=== PATIENT | male | born 1990 | race Caucasian/White ===

== ENCOUNTER 2016-06-29 14:22 | Inpatient (IN) | payer OTHER ==
--- NOTE | ~2016-06-29 | PN ---
Unit #: [id number] #: [id number] Patient: MAYA NAVA [id number] [facility] [address] [place] [address] [id number] MR#: [id number] NAME: MAYA NAVA ROOM: P186 Age: 26 Sex: M Admission Date: 06/29/2016 : 1990 Attending Physician: Nannette Weaver M.D. Admitting Physician: Nannette Weaver M.D. Primary Care Physician: Primary Care Physician Alma MEDEIROS PROGRESS NOTES DATE 06/30/2016 DISCUSSION Mr. Nava is a 26-year-old white male who was seen today and chart was reviewed and case was discussed with the staff. He has been anxious, withdrawn and seclusive to himself and describes himself to be in distress and discomfort as he is detoxing. Meanwhile, he has been cooperative with treatment recommendations and has not shown any agitation or aggression. MENTAL STATUS EXAMINATION Young white male who was casually dressed with fair personal hygiene and appears to be in no acute distress or discomfort. He was awake and alert on interaction with intact orientation. His mood was anxious with congruent affect. His speech is slow and goal-directed. He denies any suicidal or homicidal ideation. His insight and judgement remains slightly impaired. TREATMENT PLAN 1. Will continue him on his current medications and treatment protocol. Will monitor his response to the medications and make further adjustments as needed. 2. Will continue to follow up. Dictated by... Igor Chacon/sabino TD: 06/30/2016 19:40 JOB #: [id number] Unit #: [id number] #: [id number] Patient: MAYA NAVA [facility] PROGRESS NOTES Page 1 of 1 X Nannette Weaver MD PROGRESS NOTE
--- NOTE | ~2016-06-29 | DS ---
Unit #: [id number] #: [id number] [facility]: [facility] [id number] [facility] [address] [place] [address] [id number] MR#: [id number] NAME: MAYA NAVA ROOM: P121 Age: 26 Sex: M Admission Date: 06/29/2016 : 1990 Discharge Date: 07/06/2016 Attending Physician: Nannette Weaver M.D. Primary Care Physician: Primary Care Physician No DISCHARGE SUMMARY IDENTIFYING DATA Mr. Nava is a 26-year-old single white male, who is a resident of [place], [place] and was known to us from previous encounter and was self-referred to the hospital. DISCHARGE DIAGNOSES Psychiatric: Major depressive disorder, recurrent, moderate, without psychotic features; opioid dependence, moderate, in acute withdrawals; methamphetamine abuse, moderate; cannabis abuse, moderate. Medical: None. Stressors: Moderate psychosocial stressors. HISTORY OF PRESENT ILLNESS Please see initial psychiatric evaluation for details. PAST PSYCHIATRIC HISTORY Please see initial psychiatric evaluation for details. PAST MEDICAL HISTORY Please see initial psychiatric evaluation for details. HOSPITAL COURSE The patient was admitted to the adult psychiatric unit at [facility] and was oriented to the hospital environment. Routine p.r.n. medications were initiated, and he was started back on his home medication, and Seroquel and Celexa were initiated. The patient was exhibiting bizarre behavior as part of his depression, his substance abuse with acute psychosis and confusion and was making his roommates uncomfortable and had to be moved to two different rooms and then he had to be transferred to a different floor and was kept in a private camera monitored room and was exhibiting some disorganized thoughts, speech, and behavior, though was able to respond to the medications and treatment intervention with resolution of his mood and psychosis and was denying being suicidal or being a danger to self or anyone else, and was wanting to go home and was willing to continue treatment on an outpatient basis, and as such, it was decided that he will be discharged home and will continue treatment on an outpatient basis. DISCHARGE MEDICATIONS Celexa 20 mg a day for depression, Seroquel 100 mg at bedtime for psychosis. DISCHARGE CONDITION Stable. Unit #: [id number] #: [id number] Patient: MAYA NAVA. Dictated by... Igor Chacon/jermaine TD: 07/06/2016 06:53 JOB #: [id number] DISCHARGE SUMMARY Page 1 of 1 X Nannette Weaver MD X DISCHARGE SUMMARY
--- NOTE | ~2016-06-29 | HP ---
Unit #: [id number] #: [id number] Patient: EFRAIN PATTON [id number] [place] [address] [id number] MR#: [id number] NAME: EFRAIN PATTON ROOM: P186 Age: 26 Sex: M Admission Date: 06/29/2016 : 1990 Attending Physician: Nannette Weaver M.D. Admitting Physician: Nannette Weaver M.D. Primary Care Physician: Primary Care Physician No HISTORY AND PHYSICAL HISTORY OF PRESENT ILLNESS Efrain is a 26 year old, admitted to [facility] because of his continued drug use. PAST MEDICAL HISTORY Long history of illicit substance abuse to include IV meth. PAST SURGICAL HISTORY Nothing reported. ALLERGIES No known drug allergies. SOCIAL HISTORY He smokes one pack per day, denies alcohol, admits to long history of illicit substance abuse to include IV meth. FAMILY HISTORY Medically noncontributory. REVIEW OF SYSTEMS CONSTITUTIONAL: No fever or chills. HEENT: Denies any sore throat, ear pain or runny nose. CARDIOVASCULAR: Denies chest pain, irregular heart rhythm or palpitations. CHEST: Denies shortness of breath or cough. No hemoptysis. GASTROINTESTINAL: Denies nausea, vomiting, diarrhea or chronic constipation. ENDOCRINE: Denies history of increased thirst or urination. No recent significant weight loss or gain. GENITOURINARY: Denies dysuria, frequency, or hematuria. SKIN: Denies any rashes. HEMATOLOGIC: Denies history of increased bleeding or bruising. MUSCULOSKELETAL: Denies any hot, swollen joints. No generalized muscle pain. NEUROLOGIC: Denies problems with vision or speech. No frequent, severe headaches. No numbness, tingling or weakness in any extremities. Denies loss of bladder or bowel control. CURRENT MEDICATIONS Detox protocol. PHYSICAL EXAMINATION GENERAL: Alert, well-nourished, no apparent distress. Unit #: [id number] #: [id number] Patient: EFRAIN PATTON VITAL SIGNS: Blood pressure 118/72, heart rate 76, respirations 16, and temperature 98.6. WEIGHT: 170 pounds. HEIGHT: 5 feet 7 inches. SKIN: Warm and dry without rash or lesion. HEENT: Normocephalic. TMs not viewed. Oral and nasal passages clear. Conjunctivae clear. PERRLA. EOMs intact. NECK: Supple without lymphadenopathy or thyromegaly. HEART: Regular rate and rhythm without murmur. LUNGS: Clear. ABDOMEN: Soft, nontender. : Not done. EXTREMITIES: No evidence of cyanosis, clubbing or edema. Moves all without focal deficit. NEUROLOGICAL: Grossly within normal limits. Cranial Nerves: II: Visual stapleton are intact. III, IV AND : Extraocular movements are intact. Pupils are equal, round and reactive to light. V: Facial sensation is grossly normal. VII: Facial movements and expression are normal. VIII: Auditory acuity grossly intact. IX, X: Uvula is midline. Phonation is normal. XI: Patient shrugs shoulders and turns head normally. XII: Tongue protrudes in the midline. Sensory and Motor Function: Sensory and motor sensation is grossly normal. Motor: moves all extremities well. Coordination: Gait is normal. Deep Tendon Reflexes: Intact. IMPRESSION Psychiatric admission. RECOMMENDATIONS Psychiatric, per psychiatrist. MEDICAL I see no contraindications to participating in facility's activities. MEDICAL PROGNOSIS Good. MEDICAL CONDITION Stable. Dictated by... Anisa Tripp P.A.-C. for Igor Yeung/dianne TD: 06/30/2016 05:01 JOB #: [id number] Unit #: [id number] #: [id number] Patient: EFRAIN PATTON HISTORY AND PHYSICAL Page 1 of 1 X Anisa Tripp HISTORY AND PHYSICAL
--- NOTE | ~2016-06-29 | PN ---
Unit #: [id number] #: [id number] Patient: MAYA NAVA [id number] [facility] [address] [place] [address] [id number] MR#: [id number] NAME: MAYA NAVA ROOM: P121 Age: 26 Sex: M Admission Date: 06/29/2016 : 1990 Attending Physician: Nannette Weaver M.D. Admitting Physician: Nannette Weaver M.D. Primary Care Physician: Primary Care Physician Alma MEDEIROS PROGRESS NOTES DATE OF SERVICE 07/04/2016 DISCUSSION Mr. Nava is a 26-year-old white male who was seen today. Chart was reviewed and case was discussed with the staff. He has been anxious, withdrawn, rather disorganized and has been seclusive to himself. Meanwhile, she has been taking the medications and tolerating them fairly well with no reported side effects. MENTAL STATUS EXAMINATION Young white male who is casually dressed with fair personal hygiene, appears to be in no acute distress or discomfort. The patient was awake and alert on interaction with intact orientation. His mood is anxious with a congruent affect. Speech is slow and goal-directed. He denies any suicidal or homicidal ideations. His insight and judgment remain slightly impaired. TREATMENT PLAN 1. We will continue him on his current medications and treatment protocol. We will monitor his response to the medications and make further adjustments as needed. 2. We will continue to follow up. Dictated by... Nannette Weaver M.D. IAA/bzg TD: 07/05/2016 11:28 JOB #: [id number] Unit #: [id number] #: [id number] Patient: MAYA NAVA PROGRESS NOTES Page 1 of 1 X Nannette Weaver MD X PROGRESS NOTE
--- NOTE | ~2016-06-29 | PN ---
Unit #: [id number] #: [id number] Patient: MAYA NAVA [id number] [facility] [address] [place] [address] [id number] I MR#: [id number] NAME: MAYA NAVA ROOM: [facility] Age: 26 Sex: M Admission Date: 06/29/2016 : 1990 Attending Physician: Nannette Weaver M.D. Admitting Physician: Nannette Weaver M.D. Primary Care Physician: Primary Care Physician Alma FALCON NOTES DATE 07/02/2016 DISCUSSION Mr. Nava is a 26-year-old, white male with mood disorder and psychosis who was seen today and chart was reviewed and case was discussed with the staff who reports the patient has been exhibiting bizarre behavior and acute confusional state and has been out of touch with reality and has been making other patients uncomfortable. He has been his roommate so uncomfortable that he has been switched to a different room twice. Meanwhile, he has been taking the medication and tolerating them fairly well with no reported side effects. MENTAL STATUS EXAM Young white male who was casually dressed with fair personal hygiene, appears to be in no acute distress or discomfort. He was awake and alert with impaired attention and concentration. His mood was anxious with a congruent affect. His speech was slow and restricted in content. His thought process was disorganized with some looseness of associations. His insight and judgement remain significantly impaired. TREATMENT PLAN 1. We will continue him on his current medications and treatment protocol. We will monitor his response and make further adjustments as needed. 2. We will continue to follow up. Dictated by... Igor Chacon/lawrence TD: 07/03/2016 21:32 JOB #: [id number] Unit #: [id number] #: [id number] Patient: MAYA NAVA [facility] PROGRESS NOTES Page 1 of 1 X Nannette Weaver MD PROGRESS NOTE
--- NOTE | ~2016-06-29 | PA ---
Unit #: [id number] #: [id number] Patient: MAYA NAVA [id number] [facility] [address] [place] [address] [id number] MR#: [id number] NAME: MAYA NAVA ROOM: P186 Age: 26 Sex: M Admission Date: 06/29/2016 : 1990 Date of Assessment: Attending Physician: Nannette Weaver M.D. Admitting Physician: Nannette Weaver M.D. PSYCHIATRIC ASSESSMENT DATE OF SERVICE 06/29/2016. IDENTIFYING DATA Mr. Nava is a 26-year-old single white male, who is a resident of [place] and is known to us from previous encounter, and was self-referred to the hospital on a voluntary basis. CHIEF COMPLAINT "I have been trying to kill myself." HISTORY OF PRESENT ILLNESS Mr. Nava is a 26-year-old white male with history of substance abuse and mood disorder, who is known to us from previous encounter, and was self-referred to the hospital. Upon presentation, reports increasing depression, thoughts of wanting to kill himself and stated that about a week ago, "I tried to cut my wrist with a knife. Yesterday, I tried to hang myself with a fishing line. I just thought of my daughter and I [facility], however, could get help and I don't want to do it again. If I cannot get help, I am in thoughts overdose on pills to kill myself." The patient stated "right now, I don't think I could keep myself safe at another facility because this place help me last time. I have been using past 2 weeks. My last use was yesterday, also has been using ice daily IV or snorted and also use pain pills to every other day, and my last use was 6 days ago." However, he did report increasing depression, anxiety, irritability, restlessness, feelings of hopelessness and helplessness, and suicidal ideations with intent and plan and as such, recommendation for inpatient level of care for safety and stabilization was made. SUBSTANCE ABUSE HISTORY The patient has extensive history of substance abuse and dependence including experimentation with alcohol, cannabis, cocaine, acid, opioids, amphetamines, and reports that he has been using drugs occasionally including methamphetamine, heroin, and cannabis. PAST PSYCHIATRIC HISTORY The patient has a history of inpatient psychiatric hospitalization at [facility] twice and recently was hospitalized under my care in 04/2016; however, review of the medical records indicate that currently he is not active in treatment program, is not seeing a psychiatrist, not taking any psychotropic medications. Unit #: [id number] #: [id number] Patient: MAYA NAVA PAST MEDICAL HISTORY The patient's medical history is insignificant. ALLERGIES No known medication allergies. CURRENT MEDICATIONS None. PERSONAL AND SOCIAL HISTORY A 26-year-old white male, who reports that he is single, unemployed, and essentially homeless and has poor social support system. MENTAL STATUS EXAMINATION Young white male, who was casually dressed with fair personal hygiene, appears to be in no acute distress or discomfort. He was awake and alert on interaction with intact orientation to time, place, and person. His mood was anxious and depressed with a congruent affect. His speech was slow and restricted in content. His thought processes were disorganized with some looseness of associations and suicidal ideations. His insight and judgment remain significantly impaired. DIAGNOSTIC IMPRESSION Psychiatric: Major depressive disorder, recurrent, moderate without psychotic features; opioid dependence, moderate and acute withdrawal; methamphetamine abuse, moderate; cannabis abuse, moderate. Medical: None. Stressors: Moderate psychosocial stressors. TREATMENT PLAN The patient has presented with history of substance abuse and mood disorder, and has been decompensating and will need inpatient hospitalization for detoxification, safety, and stabilization. We will start him back on his home medications. We will adjust the medications ESTIMATED LENGTH OF STAY 5 to 7 days. ABILITY TO HELP SELF Limited. WILLINGNESS TO HELP SELF The patient appears to be willing to help self. STRENGTHS 1. Communicative. 2. Cooperative. PROBLEMS 1. Chronic dysphoric symptoms. 2. Poor social support system. DISCHARGE CRITERIA This will be contingent upon the patient's ability to go through detox without having any significant withdrawal symptoms as well as ability to stay safe to himself, particularly after discharge from the hospital. Unit #: [id number] #: [id number] Patient: MAYA NAVA Dictated by... Nannette Weaver M.D. AISHWARYA/jermaine TD: 06/30/2016 06:36 JOB #: [id number] PSYCHIATRIC ASSESSMENT Page 1 of 1 X Nannette Weaver MD PSYCHIATRIC ASSESSMENT
--- NOTE | ~2016-06-29 | PN ---
Unit #: [id number] #: [id number] Patient: MAYA NAVA [id number] [facility] [address] [place] [address] [id number] I MR#: [id number] NAME: MAYA NAVA ROOM: P106 Age: 26 Sex: M Admission Date: 06/29/2016 : 1990 Attending Physician: Nannette Weaver M.D. Admitting Physician: Nannette Weaver M.D. Primary Care Physician: Primary Care Physician Alma FALCON NOTES DATE 07/01/2016 DISCUSSION Mr. Nava is a 26-year-old, white male with substance abuse and mood disorder who was seen today and chart was reviewed and case was discussed with the staff. He has been anxious, restless, withdrawn and seclusive to himself distress or discomfort reporting not feeling good as he goes through detox. Meanwhile, he has been taking medications and tolerating them fairly. MENTAL STATUS EXAM Young white male who was casually dressed with marginal personal hygiene, appears to be in distress or discomfort. He was awake and alert with impaired attention and concentration. His mood was anxious with congruent affect. His speech was slow and restricted in content. His thought processes were disorganized with some looseness of associations. His insight and judgement remains significantly impaired. TREATMENT PLAN 1. We will continue him on his current medications and treatment protocol. We will monitor his response to the medications and make further adjustments as needed. 2. We will continue to follow up. Dictated by... Igor Chacon/lawrence TD: 07/03/2016 00:18 JOB #: [id number] Unit #: [id number] #: [id number] Patient: MAYA ANVA [facility] PROGRESS NOTES Page 1 of 1 X Nannette Weaver MD PROGRESS NOTE
--- NOTE | ~2016-06-29 | PN ---
Unit #: [id number] #: [id number] Patient: MAYA NAVA [id number] [facility] [address] [place] [address] [id number] I MR#: [id number] NAME: MAYA NAVA ROOM: P121 Age: 26 Sex: M Admission Date: 06/29/2016 : 1990 Attending Physician: Nannette Weaver M.D. Admitting Physician: Nannette Weaver M.D. Primary Care Physician: Primary Care Physician Alma FALCON NOTES DATE OF SERVICE 07/05/2016 DISCUSSION Mr. Nava is a 26-year-old white male who was seen today. Chart was reviewed and case was discussed with the staff. He has been anxious, restless, withdrawn, and rather seclusive to himself. Meanwhile, he has been cooperative with treatment recommendations and has been taking the medications and tolerating them fairly well with no reported side effects. MENTAL STATUS EXAMINATION Young white male who is casually dressed with fair personal hygiene, appears to be in no acute distress or discomfort. He was awake and alert on interaction with intact orientation. His mood is anxious with congruent affect. His speech is slow and restricted in content. He denies any current suicidal or homicidal ideations and also denies any auditory or visual hallucinations. His insight and judgment remain slightly impaired. TREATMENT PLAN 1. We will continue him on his current medications and treatment protocol. We will monitor his response to the medications and make further adjustments as needed. 2. We will continue to follow up. Dictated by... Igor Chacon/shayan TD: 07/07/2016 07:41 JOB #: [id number] Unit #: [id number] #: [id number] Patient: MAYA NAVA [facility] PROGRESS NOTES Page 1 of 1 X Nannette Weaver MD PROGRESS NOTE
--- NOTE | ~2016-06-29 | PN ---
Unit #: [id number] #: [id number] Patient: MAYA NAVA [id number] [facility] [address] [place] [address] [id number] MR#: [id number] NAME: MAYA NAVA ROOM: P121 Age: 26 Sex: M Admission Date: 06/29/2016 : 1990 Attending Physician: Nannette Weaver M.D. Admitting Physician: Nannette Weaver M.D. Primary Care Physician: Primary Care Physician Alma MEDEIROS PROGRESS NOTES DATE 07/03/2016 DISCUSSION Mr. Nava is a 26-year-old white male who was seen today and chart was reviewed and case was discussed with the staff. He has been anxious, withdrawn though has not shown any agitation, irritability and has been cooperative with treatment recommendations though has been exhibiting some confusion and restlessness and depressed symptoms. MENTAL STATUS EXAMINATION Young white male who was casually dressed with fair personal hygiene and appears to be in no acute distress or discomfort. He was awake and alert on interaction with intact orientation. His mood was anxious with congruent affect. His speech is slow and goal-directed. He denies any suicidal or homicidal ideation and also denies any auditory or visual hallucinations. His insight and judgement remains slightly impaired. TREATMENT PLAN 1. Will continue on his current medications and treatment protocol. Will monitor his response to the medications and make further adjustments as needed. 2. Will continue to follow up. Dictated by... Igor Chacon/sabino TD: 07/04/2016 17:45 JOB #: [id number] Unit #: [id number] #: [id number] Patient: MAYA NAVA [facility] PROGRESS NOTES Page 1 of 1 X Nannette Weaver MD PROGRESS NOTE
[~2016-06-29 14:22] MED LIST: NO MEDICATIONS
[2016-06-30 09:45] LABS: BASOPHIL# 0.1 X10e3 (0-0.3); EOSINOPHIL# 0.2 X10e3 (0-0.7); EOSINOPHIL% 4.2 % (0.0-7.0); HEMATOCRIT 43.7 % (38.0-50.0); HEMOGLOBIN 14.5 gm/dL (13.0-16.0); LYMPHOCYTE# 2.1 X10e3 (1.0-3.5); LYMPHOCYTE% 37.2 % (17.0-45.0); MEAN CELL VOLUME 90.8 FL (83-96); MEAN CORPUSCULAR HEMOGLOBIN 30.1 PG (28-34); MEAN CORPUSCULAR HGB CONC 33.1 g/dL (30-36); MONOCYTE# 0.7 X10e3 (0-1.0); MONOCYTE% 12.6 % (3.0-12.0); NEUTROPHIL# 2.5 X10e3 (1.5-7.1); PLATELET COUNT 178 X10e3 (140-420); RED BLOOD COUNT 4.82 X10e (3.90-5.60); RED CELL DISTRIBUTION WIDTH 14.8 % (11.0-15.5); WHITE BLOOD COUNT 5.6 X10e3 (4.0-10.5)
[2016-06-30 09:45] LABS: URINE APPEARANCE CLEAR; URINE BLOOD NEG (NEG); URINE COLOR DK YELLOW; URINE GLUCOSE NEG (NEG); URINE KETONE TRACE (NEG); URINE LEUKOCYTE ESTERASE NEG (NEG); URINE NITRATE NEG (NEG); URINE PROTEIN NEG (NEG); URINE SPECIFIC GRAVITY 1.026 (1.003-1.035)
[2016-06-30 09:52] LABS: DIFF IND NO
[2016-06-30 10:07] LABS: THYROID STIMULATING HORMONE 0.37 uIU/ml (0.34-5.60)
[2016-06-30 10:14] LABS: URINE BILIRUBIN NEG (NEG)
[2016-06-30 10:18] LABS: FREE THYROXIN (T4) 0.73 ng/dL (0.58-1.64)
[2016-06-30 10:32] LABS: ALBUMIN SERUM 3.4 g/dL (3.5-5.0); BILIRUBIN,TOTAL 0.8 mg/dL (0.2-2.0); BUN/CREATININE RATIO 18.75; CALCIUM SERUM 8.5 mg/dL (8.4-10.2); CREATININE SERUM 0.8 mg/dL (0.6-1.4); GLOM FILT RATE Estimated 122.5 mL/min (>60); POTASSIUM 4.3 mmol/L (3.5-5.1); PROTEIN TOTAL SERUM 5.3 g/dL (6.0-8.3)
[2016-06-30 10:32] LABS: AMPHETAMINE NEG (NEG); BARBITURATES NEG (NEG); BENZODIAZEPINES NEG (NEG); COCAINE NEG (NEG); MARIJUANA POS (NEG); OPIATES NEG (NEG); TRICYCLIC ANTIDEPRESSANTS NEG (NEG); U METHADONE NEG (NEG)
== END 2016-07-06 10:45 | DRG 885 ==
LOC: P1E 14:22 → P1S 07-02 11:57
PROVIDERS: Psychiatry & Neurology Psychiatry
PROC: HZ2ZZZZ Detoxification Services for Substance Abuse Treatment (ICD-10-PCS; principal; 2016-06-29)
DX: F33.1 Major depressive disorder, recurrent, moderate (principal); R45.851 Suicidal ideations; F11.23 Opioid dependence with withdrawal; Z59.0 Homelessness; F15.10 Other stimulant abuse, uncomplicated; F14.10 Cocaine abuse, uncomplicated; F17.210 Nicotine dependence, cigarettes, uncomplicated
CPT/HCPCS: 80053; 80307; 81003; 84439; 84443; 85025; 86592

== ENCOUNTER 2016-09-05 14:00 | Inpatient (IN) | payer OTHER ==
--- NOTE | ~2016-09-05 | PN ---
Unit #: [id number] #: [id number] Patient: MAYA NAVA [id number] [facility] [address] [place] [address] [id number] MR#: [id number] NAME: MAYA NAVA ROOM: P180 Age: 26 Sex: M Admission Date: 09/05/2016 : 1990 Attending Physician: Nannette Weaver M.D. Admitting Physician: Nannette Weaver M.D. Primary Care Physician: Primary Care Physician Alma MEDEIROS PROGRESS NOTES DATE OF SERVICE: 09/10/2016 SUBJECTIVE Mr. Nava is a 26-year-old white male, who was seen today and chart was reviewed and case was discussed with the staff. He appears to be doing better, has been calm and cooperative with treatment recommendation and has been taking medications and tolerating them fairly well with no reported side effects. MENTAL STATUS EXAMINATION Young white male who was causally dressed with fair personal hygiene, appears to be in no acute distress or discomfort. He was awake and alert on interaction with intact orientation. His mood was anxious with a congruent affect. He denies any suicidal or homicidal ideations, and also denies any auditory or visual hallucinations. His insight and judgment remain slightly impaired. TREATMENT PLAN 1. We will continue him on his current medications and treatment protocol. We will monitor his response and make further adjustments as needed. 2. We will continue to follow up. Dictated by... Igor Chacon/jermaine TD: 09/10/2016 14:19 JOB #: [id number] [facility] PROGRESS NOTES Page 1 of 1 X Nannette Weaver MD PROGRESS NOTE
--- NOTE | ~2016-09-05 | DS ---
Unit #: [id number] #: [id number] [facility]: [facility] PATTON [id number] [facility] [address] [place] [address] [id number] I MR#: [id number] NAME: MAYA PATTON ROOM: P180 Age: 26 Sex: M Admission Date: 09/05/2016 : 1990 Discharge Date: 09/11/2016 Attending Physician: Nannette Weaver M.D. DISCHARGE SUMMARY IDENTIFYING DATA Mr. Angeles is a 26-year-old white male with history of substance abuse and dependence, who was self-referred to the hospital. DISCHARGE DIAGNOSES Psychiatric: Opioid dependence, moderate and acute withdrawals; methamphetamine dependence, moderate; opioid-induced mood disorder. Medical: None. Stressors: Moderate psychosocial stressors. HISTORY OF PRESENT ILLNESS Please see initial psychiatric evaluation for details. PAST PSYCHIATRIC HISTORY Please see initial psychiatric evaluation for details. PAST MEDICAL HISTORY Please see initial psychiatric evaluation for details. HOSPITAL COURSE The patient was admitted to the adult chemical dependency unit at [facility] and was oriented to the hospital environment. Routine p.r.n. medications were initiated, and he was started on the detox protocol and was closely monitored. He was also given Celexa to help with depressive symptoms and was seen to be doing much better and was taking the medications regularly and was tolerating them fairly well and was able to show a decent and therapeutic response and as such, it was decided that he will be discharged home and will continue treatment on an outpatient basis. DISCHARGE CONDITION Stable. PROGNOSIS Fair. Dictated by... Igor Chacon/jermaine TD: 10/17/2016 23:21 JOB #: [id number] Unit #: [id number] #: [id number] Patient: MAYA PATTON DISCHARGE SUMMARY Page 1 of 1 X Nannette Weaver MD X DISCHARGE SUMMARY
--- NOTE | ~2016-09-05 | PN ---
Unit #: [id number] #: [id number] Patient: MAYA NAVA [id number] [facility] [address] [place] [address] [id number] I MR#: [id number] NAME: MAYA NAVA ROOM: P180 Age: 26 Sex: M Admission Date: 09/05/2016 : 1990 Attending Physician: Nannette Weaver M.D. Admitting Physician: Nannette Waever M.D. Primary Care Physician: Primary Care Physician Alma FALCON NOTES DATE 09/07/2016 DISCUSSION Mr. Nava is a 26-year-old, white male who was seen today and chart was reviewed and case was discussed with the staff. He has been anxious, withdrawn and rather seclusive to himself. Meanwhile, he has been cooperative with the treatment recommendations. He has been taking the medication and tolerating them fairly well with no reported side effects. MENTAL STATUS EXAM Young white male who was casually dressed with fair personal hygiene, appears to be in no acute distress or . Dictated by... Igor Chacon/lawrence TD: 09/08/2016 05:04 JOB #: [id number] WALDEMAR FALCON NOTES Page 1 of 1 X Nannette Weaver MD PROGRESS NOTE
--- NOTE | ~2016-09-05 | PN ---
Unit #: [id number] #: [id number] Patient: MAYA NAVA [id number] [facility] [address] [place] [address] [id number] MR#: [id number] NAME: MAYA NAVA ROOM: P180 Age: 26 Sex: M Admission Date: 09/05/2016 : 1990 Attending Physician: Nannette Weaver M.D. Admitting Physician: Nannette Weaver M.D. Primary Care Physician: Primary Care Physician Alma MEDEIROS PROGRESS NOTES DATE OF SERVICE: 09/11/2016 SUBJECTIVE Mr. Nava is a 26-year-old white male who was seen today and chart was reviewed and case was discussed with the staff. He appears to be doing fairly well, though has been still anxious and pacing the hallways, but states that he is ready to go to his rehab level of care. Meanwhile, he has been taking the medications and tolerating them fairly well with no reported side effects. MENTAL STATUS EXAMINATION Young white male who was casually dressed with fair personal hygiene, appears to be in no acute distress or discomfort. He was awake and alert with intact orientation. His mood was anxious with a congruent affect. He denies any suicidal or homicidal ideations, and also denies any auditory or visual hallucinations. His insight and judgment remain slightly impaired. TREATMENT PLAN We will continue him on his current medications and treatment protocol. We will monitor his response. Dictated by... Igor Chacon/cameronl TD: 09/12/2016 01:33 JOB #: [id number] [facility] PROGRESS NOTES Page 1 of 1 X Nannette Weaver MD PROGRESS NOTE
--- NOTE | ~2016-09-05 | PA ---
Unit #: [id number] #: [id number] [facility]AVA [id number] [facility] [address] [place] [address] [id number] I MR#: [id number] NAME: MAYA NAVA ROOM: P180 Age: 26 Sex: M Admission Date: 09/05/2016 : 1990 Date of Assessment: Attending Physician: Nannette Weaver M.D. Admitting Physician: Nannette Weaver M.D. Primary Care Physician: Primary Care Physician No PSYCHIATRIC ASSESSMENT DATE OF SERVICE 09/05/2016. IDENTIFYING DATA Mr. Nava is a 26-year-old single white male, who is a resident of [place], [place], and was self-referred to the hospital on a voluntary basis and he is known to us from previous encounter. CHIEF COMPLAINT "I'm having suicidal thoughts because I know I don't have a job or income." HISTORY OF PRESENT ILLNESS A 26-year-old white male, who self-presented stating that he has been having suicidal thoughts and financial stressors and not having any job and "I'm having to steal to stay alive." The patient reports that his plan is to kill himself with a heroin overdose, "because I don't use that all the time and it would not take as much." The patient reports that his family will not talk to him and they are 60 miles away in [place], [place], and the patient reports using ice 1 g IV about once a week and cannabis once a week and last use of cannabis was a couple of days ago and ice was last week. He does report increasing depression, anxiety, irritability, feelings of hopelessness and helplessness, and suicidal ideations and was seen to be danger to self and as such, recommendation for inpatient level of care for safety and stabilization was made and the patient was transferred to us. SUBSTANCE ABUSE HISTORY The patient reports occasional experimentation with cannabis, methamphetamine, and heroin. PAST PSYCHIATRIC HISTORY The patient [facility] and has been diagnosed and treated for mood disorder, but currently he has not been active in any treatment program, is not seeing a psychiatrist, and is not taking any psychotropic medications. PAST MEDICAL HISTORY No acute or chronic medical illness. ALLERGIES No known medication allergies. CURRENT MEDICATIONS Unit #: [id number] #: [id number] Patient: MAYA NAVA None. PERSONAL AND SOCIAL HISTORY A 26-year-old white male, who reports that he is single, unemployed, and homeless and has poor social support system. MENTAL STATUS EXAMINATION Young white male who was casually dressed with fair personal hygiene, appears to be in no acute distress or discomfort. He was awake and alert on interaction with intact orientation to time, place, and person. His mood was anxious and depressed with a congruent affect. His speech was slow and restricted in content. He reports having suicidal ideations, but denies any homicidal ideations, and also denies any auditory or visual hallucinations. His insight and judgment remain significantly impaired. DIAGNOSTIC IMPRESSION Psychiatric: Major depressive disorder, recurrent, moderate, without psychotic features; opioid abuse, moderate; cannabis abuse, moderate; methamphetamine abuse, moderate. Medical: None. Stressors: Moderate psychosocial stressors. TREATMENT PLAN 1. The patient has presented with history of substance abuse and mood disorder, and has been decompensating and will need inpatient hospitalization for detoxification, safety, and stabilization. We will start him back on his home medications. We will monitor response and make further adjustments as needed. 2. Supportive therapy was provided to the patient. 3. Safe, structured, and nourishing environment will be provided. ESTIMATED LENGTH OF STAY 4 to 5 days. ABILITY TO HELP SELF Limited. WILLINGNESS TO HELP SELF The patient appears to be willing to help self. STRENGTHS 1. Communicative. 2. Cooperative. PROBLEMS 1. Chronic dysphoric symptoms. 2. Chronic chemical dependency. 3. Poor social support system. DISCHARGE CRITERIA This will be contingent upon the patient's ability to show resolution of his depression and anxiety and his ability to stay safe to himself, particularly after discharge from the hospital. Dictated by... Nannette Weaver M.D. Unit #: [id number] #: [id number] Patient: MAYA NAVA IAA/modl TD: 09/06/2016 06:34 JOB #: [id number] PSYCHIATRIC ASSESSMENT Page 1 of 1 X Nannette Weaver MD X PSYCHIATRIC ASSESSMENT
--- NOTE | ~2016-09-05 | PN ---
Unit #: [id number] #: [id number] Patient: MAYA NAVA [id number] [facility] [address] [place] [address] [id number] I MR#: [id number] NAME: MAYA NAVA ROOM: P180 Age: 26 Sex: M Admission Date: 09/05/2016 : 1990 Attending Physician: Nannette Weaver M.D. Admitting Physician: Nannette Weaver M.D. Primary Care Physician: Primary Care Physician Alma MEDEIROS PROGRESS NOTES DATE September 09, 2016 DISCUSSION Mr. Nava is a 26-year-old white male, who was seen today and chart was reviewed and the case was discussed with the staff. He has been anxious, withdrawn, and rather seclusive to himself. Meanwhile, he has been cooperative with his treatment recommendations and he has been taking the medications and tolerating them fairly well with no reported side effects. MENTAL STATUS EXAMINATION Young white male, who was casually dressed with fair personal hygiene and appears to be in no acute distress or discomfort. He was awake and alert on interaction with intact orientation. His mood is anxious with a congruent affect. He denies any suicidal or homicidal ideations. His insight and judgment remain slightly impaired. TREATMENT PLAN 1. We will continue him on his current treatment protocol, and will monitor his response, and make further adjustments as needed. 2. We will continue to followup. Dictated by... Igor Chacon/dianne TD: 09/11/2016 06:57 JOB #: [id number] Unit #: [id number] #: [id number] Patient: MAYA NAVA PROGRESS NOTES Page 1 of 1 X Nannette Weaver MD PROGRESS NOTE
--- NOTE | ~2016-09-05 | PN ---
Unit #: [id number] #: [id number] Patient: MAYA NAVA [id number] [facility] [address] [place] [address] [id number] I MR#: [id number] NAME: MAYA NAVA ROOM: P180 Age: 26 Sex: M Admission Date: 09/05/2016 : 1990 Attending Physician: Nannette Weaver M.D. Admitting Physician: Nannette Weaver M.D. Primary Care Physician: Primary Care Physician Alma FALCON NOTES DATE OF SERVICE: 09/07/2016 SUBJECTIVE Mr. Nava is a 26-year-old white male who was seen today and chart was reviewed and case was discussed with the staff. He has been anxious, withdrawn, and rather seclusive to himself. Meanwhile, he has been taking the medications and tolerating them fairly well with no reported side effects. MENTAL STATUS EXAMINATION Young white male who was causally dressed with fair personal hygiene, appears to be in no acute distress or discomfort. He was awake and alert on interaction with intact orientation. His mood was anxious with a congruent affect. He denies any suicidal or homicidal ideations, and also denies any auditory or visual hallucinations. His insight and judgment remain slightly impaired. TREATMENT PLAN 1. We will continue him on his current medications and treatment protocol. We will monitor his response and make further adjustments as needed. 2. We will continue to follow up. Dictated by... Igor Chacon/cameronl TD: 09/07/2016 22:30 JOB #: [id number] Unit #: [id number] #: [id number] Patient: MAYA NAVA WALDEMAR PROGRESS NOTES Page 1 of 1 X Nannette Weaver MD X PROGRESS NOTE
--- NOTE | ~2016-09-05 | PN ---
Unit #: [id number] #: [id number] Patient: MAYA NAVA [id number] [facility] [address] [place] [address] [id number] I MR#: [id number] NAME: MAYA NAVA ROOM: P180 Age: 26 Sex: M Admission Date: 09/05/2016 : 1990 Attending Physician: Nannette Weaver M.D. Admitting Physician: Nannette Weaver M.D. Primary Care Physician: Primary Care Physician Alma MEDEIROS PROGRESS NOTES DATE 09/08/2016 DISCUSSION Mr. Nava is a 26-year-old, white male who was seen today and chart was reviewed and case was discussed with the staff. He has been anxious, withdrawn, pacing the hallway and very guarded and seclusive to himself and not opening up and interacting or carrying on much conversation. Meanwhile, he has been taking the medications and tolerating them fairly well with no reported side effects. MENTAL STATUS EXAM Young white male who was casually dressed with fair personal hygiene, appears to be in no acute distress or discomfort. He was awake and alert on interaction with intact orientation. His mood was anxious with congruent affect. He denies any suicidal or homicidal ideation. His insight and judgement remains significantly impaired. TREATMENT PLAN 1. We will continue him on his current treatment protocol. We will monitor his response and make further adjustments as needed. 2. We will continue to follow up. Dictated by... Igor Chacon/lawrence TD: 09/11/2016 02:00 JOB #: [id number] Unit #: [id number] #: [id number] Patient: MAYA NAVA PEALUIS PROGRESS NOTES Page 1 of 1 X Nannette Weaver MD PROGRESS NOTE
--- NOTE | ~2016-09-05 | PN ---
Unit #: [id number] #: [id number] Patient: MAYA NAVA [id number] [facility] [address] [place] [address] [id number] MR#: [id number] NAME: MAYA NAVA ROOM: P180 Age: 26 Sex: M Admission Date: 09/05/2016 : 1990 Attending Physician: Nannette Weaver M.D. Admitting Physician: Nannette Weaver M.D. Primary Care Physician: Alma Primary Care Physician [facility] PROGRESS NOTES DATE September 06. DISCUSSION Mr. Nava is a 26-year-old, white male with substance abuse and mood disorder who was seen today and chart was reviewed. The case was discussed with the staff. He was seen to be very restless, anxious and reports (1) feelings of hopelessness and suicidal ideation. He has been compliant with the treatment recommendations. MENTAL STATUS EXAMINATION Young, white male who was casually dressed with a fair personal hygiene and appears to be in no acute distress or discomfort. He was awake and alert on interaction with intact orientation. His mood is anxious and depressed with a congruent affect. Reports having suicidal ideation, but denies any homicidal ideation and also denies any auditory or visual hallucinations. His insight and judgement remain slightly impaired. TREATMENT PLAN 1. Will continue his current medications and treatment protocol. Will monitor her response to the medications and make further adjustments as needed. 2. We will continue to follow up. Dictated by... Igor Chacon/mis TD: 09/07/2016 12:33 JOB #: [id number] Unit #: [id number] #: [id number] Patient: MAYA NAVA [facility] PROGRESS NOTES Page 1 of 1 X Nannette Weaver MD PROGRESS NOTE
--- NOTE | ~2016-09-05 | HP ---
Unit #: [id number] #: [id number] Patient: EFRAIN PATTON [id number] [place] [address] [id number] MR#: [id number] NAME: EFRAIN PATTON ROOM: P180 Age: 26 Sex: M Admission Date: 09/05/2016 : 1990 Attending Physician: Nannette Weaver M.D. Admitting Physician: Nannette Weaver M.D. Primary Care Physician: Primary Care Physician No HISTORY AND PHYSICAL HISTORY OF PRESENT ILLNESS Efrain is a 26 year old admitted to [facility] because of his drug use. He shoots heroin and methamphetamine. PAST MEDICAL HISTORY History of illicit substance abuse to include IV drugs. PAST SURGICAL HISTORY Nothing reported. ALLERGIES No known drug allergies. SOCIAL HISTORY He smokes 1 pack per day. Denies alcohol. Admits to a long history of illicit substance abuse to include IV meth and heroin. FAMILY HISTORY Medically noncontributory. REVIEW OF SYSTEMS CONSTITUTIONAL: No fever or chills. HEENT: Denies any sore throat, ear pain or runny nose. CARDIOVASCULAR: Denies chest pain, irregular heart rhythm or palpitations. CHEST: Denies shortness of breath or cough. No hemoptysis. GASTROINTESTINAL: Denies nausea, vomiting, diarrhea or chronic constipation. ENDOCRINE: Denies history of increased thirst or urination. No recent significant weight loss or gain. GENITOURINARY: Denies dysuria, frequency, or hematuria. SKIN: Denies any rashes. HEMATOLOGIC: Denies history of increased bleeding or bruising. MUSCULOSKELETAL: Denies any hot, swollen joints. No generalized muscle pain. NEUROLOGIC: Denies problems with vision or speech. No frequent, severe headaches. No numbness, tingling or weakness in any extremities. Denies loss of bladder or bowel control. CURRENT MEDICATIONS 1. Celexa 20 mg daily. 2. Thorazine 50 mg q. 6 hours p.r.n. 3. Desyrel p.r.n. 4. Milk of Magnesia p.r.n. Unit #: [id number] #: [id number] Patient: EFRAIN PATTON 5. Maalox p.r.n. 6. Tylenol p.r.n. 7. Nicotine patch 14 mg daily. PHYSICAL EXAMINATION GENERAL: Alert, well-nourished, in no apparent distress. VITAL SIGNS: Blood pressure 112/68, heart rate 56, respirations 16, temperature 98.6. WEIGHT: 151. HEIGHT: 5 feet 2 inches. SKIN: Warm and dry without rash or lesion. HEENT: Normocephalic. TMs not viewed. Oral and nasal passages clear. Conjunctivae clear. PERRLA. EOMs intact. NECK: Supple without lymphadenopathy or thyromegaly. HEART: Regular rate and rhythm without murmur. LUNGS: Clear. ABDOMEN: Soft, nontender. : Not done. EXTREMITIES: No evidence of cyanosis, clubbing or edema. Moves all without focal deficit. NEUROLOGICAL: Grossly within normal limits. Cranial Nerves: II: Visual stapleton are intact. III, IV AND : Extraocular movements are intact. Pupils are equal, round and reactive to light. V: Facial sensation is grossly normal. VII: Facial movements and expression are normal. VIII: Auditory acuity grossly intact. IX, X: Uvula is midline. Phonation is normal. XI: Patient shrugs shoulders and turns head normally. XII: Tongue protrudes in the midline. Sensory and Motor Function: Sensory and motor sensation is grossly normal. Motor: moves all extremities well. Coordination: Gait is normal. Deep Tendon Reflexes: Intact. DIAGNOSTIC STUDIES ADMISSION LABS: AST/ALT 177/311. IMPRESSION 1. Psychiatric admission. 2. Long history of IV drug use. 3. Elevated liver enzymes on admission. RECOMMENDATIONS PSYCHIATRIC: Per psychiatrist. MEDICAL: 1. See no contraindications to participate in facility's activities. 2. Would screen the patient for hepatitis C. MEDICAL PROGNOSIS Good. MEDICAL CONDITION Stable. Dictated by... Anisa Tripp P.A.-C. for Darian Tsai M.D. Unit #: [id number] #: [id number] Patient: EFRAIN PATTON ROSS/sabino TD: 09/06/2016 20:21 JOB #: [id number] HISTORY AND PHYSICAL Page 1 of 1 X Anisa Tripp HISTORY AND PHYSICAL
[2016-09-06 09:40] LABS: URINE APPEARANCE CLEAR; URINE BILIRUBIN NEG (NEG); URINE BLOOD NEG (NEG); URINE COLOR YELLOW; URINE GLUCOSE NEG (NEG); URINE KETONE NEG (NEG); URINE LEUKOCYTE ESTERASE NEG (NEG); URINE NITRATE NEG (NEG); URINE PROTEIN NEG (NEG); URINE SPECIFIC GRAVITY 1.011 (1.003-1.035); URINE UROBILINOGEN 0.2 MG/DL (NEG)
[2016-09-06 10:22] LABS: AMPHETAMINE NEG (NEG); BARBITURATES NEG (NEG); BENZODIAZEPINES NEG (NEG); COCAINE NEG (NEG); MARIJUANA NEG (NEG); OPIATES NEG (NEG); TRICYCLIC ANTIDEPRESSANTS NEG (NEG); U METHADONE NEG (NEG)
[2016-09-06 12:28] LABS: BASOPHIL# 0.1 X10e3 (0-0.3); BASOPHIL% 1.2 % (0-2.5); EOSINOPHIL# 0.2 X10e3 (0-0.7); EOSINOPHIL% 3.4 % (0.0-7.0); HEMATOCRIT 43.9 % (38.0-50.0); HEMOGLOBIN 14.4 gm/dL (13.0-16.0); LYMPHOCYTE# 1.3 X10e3 (1.0-3.5); LYMPHOCYTE% 26.2 % (17.0-45.0); MEAN CELL VOLUME 93.1 FL (83-96); MEAN CORPUSCULAR HEMOGLOBIN 30.6 PG (28-34); MEAN CORPUSCULAR HGB CONC 32.8 g/dL (30-36); MEAN PLATELET VOLUME 9.9 FL (6.5-11.5); MONOCYTE# 0.5 X10e3 (0-1.0); MONOCYTE% 9.2 % (3.0-12.0); NEUTROPHIL# 3.1 X10e3 (1.5-7.1); PLATELET COUNT 209 X10e3 (140-420); RED BLOOD COUNT 4.72 X10e (3.90-5.60); RED CELL DISTRIBUTION WIDTH 14.2 % (11.0-15.5); WHITE BLOOD COUNT 5.1 X10e3 (4.0-10.5)
[2016-09-06 12:29] LABS: DIFF IND NO
[2016-09-06 12:41] LABS: ALBUMIN SERUM 3.8 g/dL (3.5-5.0); BILIRUBIN,TOTAL 0.8 mg/dL (0.2-2.0); BUN/CREATININE RATIO 13.33; CALCIUM SERUM 9.1 mg/dL (8.4-10.2); CREATININE SERUM 0.9 mg/dL (0.6-1.4); GLOM FILT RATE Estimated 116.6 mL/min (>60); POTASSIUM 4.3 mmol/L (3.5-5.1)
== END 2016-09-11 10:00 | DRG 885 ==
LOC: P1E 16:50
PROVIDERS: Psychiatry & Neurology Psychiatry
PROC: HZ2ZZZZ Detoxification Services for Substance Abuse Treatment (ICD-10-PCS; principal; 2016-09-05)
DX: F33.1 Major depressive disorder, recurrent, moderate (principal); F11.10 Opioid abuse, uncomplicated; F12.10 Cannabis abuse, uncomplicated; F15.10 Other stimulant abuse, uncomplicated; F17.210 Nicotine dependence, cigarettes, uncomplicated
CPT/HCPCS: 80053; 80307; 81003; 85025

== ENCOUNTER 2016-11-06 20:00 | Inpatient (IN) | payer OTHER ==
[~2016-11-06] VITALS: Ht 170.2 cm; Wt 77.1 kg
--- NOTE | ~2016-11-06 | HP ---
Unit #: [id number] #: [id number] Patient: EFRAIN PATTON [id number] [place] [address] [id number] I MR#: [id number] NAME: EFRAIN PATTON ROOM: P175 Age: 26 Sex: M Admission Date: 11/06/2016 : 1990 Attending Physician: Nannette Weaver M.D. Admitting Physician: Nannette Weaver M.D. Primary Care Physician: Primary Care Physician No HISTORY AND PHYSICAL HISTORY OF PRESENT ILLNESS Efrain is a 26 year old admitted to [facility] because of his continued drug use. PAST MEDICAL HISTORY Long history of illicit substance abuse to include IV meth. PAST SURGICAL HISTORY Nothing reported. ALLERGIES No known drug allergies. SOCIAL HISTORY Smokes 1 pack per day. Denies alcohol. Admits to a long history of illicit substance abuse to include IV methamphetamine. FAMILY HISTORY Medically noncontributory. REVIEW OF SYSTEMS CONSTITUTIONAL: No fever or chills. HEENT: Denies any sore throat, ear pain or runny nose. CARDIOVASCULAR: Denies chest pain, irregular heart rhythm or palpitations. CHEST: Denies shortness of breath or cough. No hemoptysis. GASTROINTESTINAL: Denies nausea, vomiting, diarrhea or chronic constipation. ENDOCRINE: Denies history of increased thirst or urination. No recent significant weight loss or gain. GENITOURINARY: Denies dysuria, frequency, or hematuria. SKIN: Denies any rashes. HEMATOLOGIC: Denies history of increased bleeding or bruising. MUSCULOSKELETAL: Denies any hot, swollen joints. No generalized muscle pain. NEUROLOGIC: Denies problems with vision or speech. No frequent, severe headaches. No numbness, tingling or weakness in any extremities. Denies loss of bladder or bowel control. CURRENT MEDICATIONS 1. Nicotine patch 14 mg daily. 2. Desyrel p.r.n. 3. Milk of Magnesia p.r.n. 4. Maalox p.r.n. 5. Tylenol p.r.n. Unit #: [id number] #: [id number] Patient: EFRAIN PATTON PHYSICAL EXAMINATION GENERAL: Alert, well-nourished, in no apparent distress. VITAL SIGNS: Blood pressure 100/54, heart rate 60, respirations 16, temperature 98.6. WEIGHT: 170. HEIGHT: 5 feet 7 inches. SKIN: Warm and dry without rash or lesion. HEENT: Normocephalic. TMs not viewed. Oral and nasal passages clear. Conjunctivae clear. PERRLA. EOMs intact. NECK: Supple without lymphadenopathy or thyromegaly. HEART: Regular rate and rhythm without murmur. LUNGS: Clear. ABDOMEN: Soft, nontender. : Not done. EXTREMITIES: No evidence of cyanosis, clubbing or edema. Moves all without focal deficit. NEUROLOGICAL: Grossly within normal limits. Cranial Nerves: II: Visual stapleton are intact. III, IV AND : Extraocular movements are intact. Pupils are equal, round and reactive to light. V: Facial sensation is grossly normal. VII: Facial movements and expression are normal. VIII: Auditory acuity grossly intact. IX, X: Uvula is midline. Phonation is normal. XI: Patient shrugs shoulders and turns head normally. XII: Tongue protrudes in the midline. Sensory and Motor Function: Sensory and motor sensation is grossly normal. Motor: moves all extremities well. Coordination: Gait is normal. Deep Tendon Reflexes: Intact. DIAGNOSTIC STUDIES ADMISSION LABS: AST/ALT 68/171. ASSESSMENT 1. Illicit drug use to include IV drugs. 2. Elevated liver enzymes on admission. RECOMMENDATIONS PSYCHIATRIC: Per psychiatrist. MEDICAL: 1. See no contraindication to participate in facility's activities. 2. Would screen for hepatitis C. MEDICAL PROGNOSIS Good. MEDICAL CONDITION Stable. Dictated by... Anisa Tripp P.A.-C. for Igor Yeung/sabino TD: 11/07/2016 17:26 Unit #: [id number] #: [id number] Patient: EFRAIN PATTON JOB #: [id number] HISTORY AND PHYSICAL Page 1 of 1 X Anisa Tripp X HISTORY AND PHYSICAL
--- NOTE | ~2016-11-06 | PA ---
Unit #: [id number] #: [id number] Patient: MAYA PATTON [id number] [facility] [address] [place] [address] [id number] I MR#: [id number] NAME: MAYA PATTON ROOM: P175 Age: 26 Sex: M Admission Date: 11/06/2016 : 1990 Date of Assessment: 11/07/2016 Attending Physician: Nannette Weaver M.D. Admitting Physician: Nannette Weaver M.D. Primary Care Physician: Primary Care Physician No PSYCHIATRIC ASSESSMENT DATE OF SERVICE 11/07/2016. IDENTIFYING DATA Mr. Angeles is a 26-year-old single white male, who is a resident of [place], [place], and was self-referred to the hospital on a voluntary basis and is known to us from previous multiple encounters. CHIEF COMPLAINT "Suicidal ideation with plan to overdose on heroin." HISTORY OF PRESENT ILLNESS Mr. Angeles is a 26-year-old white male, who presented to the hospital reporting having suicidal ideation with plan to overdose on heroin and reports that his triggers include "everything is in my from Ernie and they don't want to see me." The patient reports that he used 15 dollars worth of methamphetamine yesterday via IV route and reports he uses methamphetamine once a month and reports seeing " people what they are saying, they want to leave me alone." He reports increasing depression, anxiety, irritability, restlessness, feelings of hopelessness and helplessness, and suicidal ideations with intent and plan and as such, recommendation for inpatient level of care for safety and stabilization was made and the patient was transferred to us. SUBSTANCE ABUSE HISTORY The patient reports history of cannabis, opioids, and methamphetamine abuse, and currently, he reports methamphetamine and heroin to be his drug of choice and has been using both of those via IV route. PAST PSYCHIATRIC HISTORY The patient has had history of chemical dependency treatment at [facility] and other facilities and review of the medical records indicate currently he is not active in treatment program, is not seeing a psychiatrist, and is not taking any psychotropic medications. PAST MEDICAL HISTORY No acute or chronic medical illnesses. ALLERGIES No known medication allergies. CURRENT MEDICATIONS None. Unit #: [id number] #: [id number] Patient: MAYA PATTON PERSONAL AND SOCIAL HISTORY A 26-year-old white male, who reports that he is single, unemployed, and essentially homeless and has poor social support system. MENTAL STATUS EXAMINATION Young white male who was casually dressed with fair personal hygiene, appears to be in no acute distress or discomfort. He was awake and alert on interaction with intact orientation to time, place, and person. His mood was anxious and depressed with a congruent affect. His speech was slow and goal directed. He reports having suicidal ideations but denies any homicidal ideations, but also reports visual hallucinations. His insight and judgment remain significantly impaired. DIAGNOSTIC IMPRESSION Psychiatric: Major depressive disorder, recurrent, moderate, without psychotic features; opioid dependence, moderate; methamphetamine dependence, moderate. Medical: None. Stressors: Moderate psychosocial stressors. TREATMENT PLAN 1. The patient has presented with history of mood disorder and substance abuse and has been decompensating and will need inpatient hospitalization for safety and stabilization. We will start him back on his home medications and we will adjust the medications and monitor response. 2. Supportive therapy was provided to the patient. 3. Safe, structured, and nourishing environment will be provided. ESTIMATED LENGTH OF STAY 4 to 5 days. ABILITY TO HELP SELF Limited. WILLINGNESS TO HELP SELF The patient appears to be willing to help self. STRENGTHS 1. Communicative. 2. Cooperative. PROBLEMS 1. Chronic dysphoric symptoms. 2. Poor social support system. DISCHARGE CRITERIA This will be contingent upon the patient's ability to show resolution of his depression and anxiety and his ability to stay safe to himself, particularly after discharge from the hospital. Dictated by... Igor Chacon/jermaine TD: 11/07/2016 07:10 Unit #: [id number] #: [id number] Patient: MAYA PATTON JOB #: [id number] PSYCHIATRIC ASSESSMENT Page 1 of 1 X Nannette Weaver MD PSYCHIATRIC ASSESSMENT
--- NOTE | ~2016-11-06 | DS ---
Unit #: [id number] #: [id number] Patient: MAYA NAVA [id number] [facility] [address] [place] [address] [id number] MR#: [id number] NAME: MAYA NAVA ROOM: P175 Age: 26 Sex: M Admission Date: 11/06/2016 : 1990 Discharge Date: 11/09/2016 Attending Physician: Nannette Weaver M.D. Primary Care Physician: Primary Care Physician No DISCHARGE SUMMARY IDENTIFYING DATA Mr. Nava is a 26-year-old, single, white male, who is a resident of [place], [place], and is known to us from previous encounter, was self-referred to the hospital on voluntary basis. DISCHARGE DIAGNOSES Psychiatric: Major depressive disorder, recurrent, moderate, without psychotic features; opioid dependence, moderate; methamphetamine dependence, moderate. Medical: None. Stressors: Mild psychosocial stressors. HISTORY OF PRESENT ILLNESS Please see initial psychiatric evaluation for details. PAST PSYCHIATRIC HISTORY Please see initial psychiatric evaluation for details. PAST MEDICAL HISTORY Please see initial psychiatric evaluation for details. HOSPITAL COURSE The patient [facility] and was oriented to the hospital environment. Routine p.r.n. medications were initiated, and he was started on Celexa as an antidepressant and was closely monitored. He was taking the medications regularly and was tolerating them fairly well and was able to show a decent therapeutic response with improvement in depression and anxiety, and was willing to continue treatment on an outpatient basis and as such, it was decided that he will be discharged home and will continue treatment on an outpatient basis. DISCHARGE MEDICATIONS Celexa 20 mg a day for depression. DISCHARGE CONDITION Stable. PROGNOSIS Fair. Unit #: [id number] #: [id number] Patient: MAYA NAVA Dictated by... Igor Chacon/jermaine TD: 11/09/2016 06:42 JOB #: [id number] DISCHARGE SUMMARY Page 1 of 1 X Nannette Weaver MD X DISCHARGE SUMMARY
--- NOTE | ~2016-11-06 | PN ---
Unit #: [id number] #: [id number] Patient: MAYA NAVA [id number] [facility] [address] [place] [address] [id number] I MR#: [id number] NAME: MAYA NAVA ROOM: P175 Age: 26 Sex: M Admission Date: 11/06/2016 : 1990 Attending Physician: Nannette Weaver M.D. Admitting Physician: Nannette Weaver M.D. Primary Care Physician: Primary Care Physician Alma MEDEIROS PROGRESS NOTES DATE OF SERVICE 11/08/2016 DISCUSSION Mr. Nava is a 26-year-old white male with substance abuse and mood disorder who was seen today. Chart was reviewed and case was discussed with the staff. He has been anxious, withdrawn, and rather seclusive to himself. Meanwhile, he has been cooperative with the treatment recommendations and has been taking the medications and tolerating them fairly well with no reported side effects. MENTAL STATUS EXAMINATION Young white male who is casually dressed with fair personal hygiene, appears to be in no acute distress or discomfort. He was awake and alert on interaction with intact orientation. His mood is anxious with congruent affect. Speech is slow and goal-directed. He denies any suicidal or homicidal ideations and also denies any auditory or visual hallucinations. His insight and judgment remain slightly impaired. TREATMENT PLAN 1. We will continue him on his current medications and treatment protocol. We will monitor his response to the medications and make further adjustments as needed. 2. We will continue to follow up. Dictated by... Igor Chacon/shayan TD: 11/08/2016 14:32 JOB #: [id number] Unit #: [id number] #: [id number] Patient: MAYA NAVA PEALUIS PROGRESS NOTES Page 1 of 1 X Nannette Weaver MD PROGRESS NOTE
[2016-11-07 09:49] LABS: BASOPHIL# 0.1 X10e3 (0-0.3); BASOPHIL% 0.7 % (0-2.5); EOSINOPHIL# 0.2 X10e3 (0-0.7); EOSINOPHIL% 2.7 % (0.0-7.0); HEMATOCRIT 46.7 % (38.0-50.0); HEMOGLOBIN 15.5 gm/dL (13.0-16.0); LYMPHOCYTE% 24.5 % (17.0-45.0); MEAN CELL VOLUME 93.1 FL (83-96); MEAN CORPUSCULAR HEMOGLOBIN 30.9 PG (28-34); MEAN CORPUSCULAR HGB CONC 33.2 g/dL (30-36); MEAN PLATELET VOLUME 8.8 FL (6.5-11.5); MONOCYTE# 0.8 X10e3 (0-1.0); MONOCYTE% 9.6 % (3.0-12.0); NEUTROPHIL# 5.1 X10e3 (1.5-7.1); NEUTROPHIL% 62.5 % (40-75); PLATELET COUNT 259 X10e3 (140-420); RED BLOOD COUNT 5.02 X10e (3.90-5.60); RED CELL DISTRIBUTION WIDTH 13.6 % (11.0-15.5); WHITE BLOOD COUNT 8.1 X10e3 (4.0-10.5)
[2016-11-07 09:51] LABS: DIFF IND NO
[2016-11-07 10:04] LABS: ALBUMIN SERUM 4.1 g/dL (3.5-5.0); BILIRUBIN,TOTAL 0.9 mg/dL (0.2-2.0); BUN/CREATININE RATIO 15.45; CALCIUM SERUM 9.2 mg/dL (8.4-10.2); CREATININE SERUM 1.1 mg/dL (0.6-1.4); GLOM FILT RATE Estimated 91.5 mL/min (>60); PROTEIN TOTAL SERUM 6.9 g/dL (6.0-8.3)
[2016-11-07 10:07] LABS: URINE APPEARANCE TURBID; URINE BLOOD NEG (NEG); URINE COLOR DK YELLOW; URINE GLUCOSE NEG (NEG); URINE KETONE TRACE (NEG); URINE LEUKOCYTE ESTERASE NEG (NEG); URINE NITRATE POS (NEG); URINE PROTEIN 2+ (NEG); URINE SPECIFIC GRAVITY 1.038 (1.003-1.035)
[2016-11-07 10:09] LABS: URBCS1 AUWI 0-2 /[HPF] (0-2); URINE BACTERIA AUWI NEG (NEGATIVE); URINE SQUAMOUS EPITHELIAL CELL NONE SEEN /[HPF]
[2016-11-07 10:38] LABS: URINE BILIRUBIN NEG (NEG)
[2016-11-07 10:39] LABS: URINE AMORPHOUS SEDIMENT AMORP URATES; URINE MUCUS PRESENT
[2016-11-07 11:07] LABS: AMPHETAMINE POS (NEG); BARBITURATES NEG (NEG); BENZODIAZEPINES NEG (NEG); COCAINE NEG (NEG); MARIJUANA NEG (NEG); OPIATES NEG (NEG); TRICYCLIC ANTIDEPRESSANTS NEG (NEG); U METHADONE NEG (NEG)
== END 2016-11-09 08:55 | DRG 885 ==
LOC: P1E 22:25
PROVIDERS: Psychiatry & Neurology Psychiatry
DX: F33.1 Major depressive disorder, recurrent, moderate (principal); F11.20 Opioid dependence, uncomplicated; R45.851 Suicidal ideations; F15.20 Other stimulant dependence, uncomplicated
CPT/HCPCS: 80053; 80307; 81003; 85025

== ENCOUNTER 2016-12-07 18:29 | Inpatient (IN) | payer OTHER ==
[~2016-12-07] VITALS: Ht 165.1 cm; Wt 70.3 kg
--- NOTE | ~2016-12-07 | HP ---
Unit #: [id number] #: [id number] Patient: EFRAIN PATTON [id number] [facility] [address] [place] [address] [id number] I MR#: [id number] NAME: EFRAIN PATTON ROOM: P202 Age: 26 Sex: M Admission Date: 12/07/2016 : 1990 Attending Physician: Nannette Weaver M.D. Admitting Physician: Nannette Weaver M.D. Primary Care Physician: Primary Care Physician No HISTORY AND PHYSICAL Efrain is a 26 year old admitted to [address] [place] [address] because of his drug use. He shoots methamphetamine. He has had other admissions to this facility for the same. Patient was seen and H and P dated 11/07/16 was reviewed. This is current. No changes. Please see H and P dated 11/07/16. Dictated by... Anisa Tripp P.A.-C. for Igor Yeung/sabino TD: 12/08/2016 16:56 JOB #: [id number] HISTORY AND PHYSICAL Page 1 of 1 X Anisa Tripp HISTORY AND PHYSICAL
--- NOTE | ~2016-12-07 | PN ---
Unit #: [id number] #: [id number] Patient: MAYA NAVA [id number] [facility] [address] [place] [address] [id number] I MR#: [id number] NAME: MAYA NAVA ROOM: P202 Age: 26 Sex: M Admission Date: 12/07/2016 : 1990 Attending Physician: Nannette Weaver M.D. Admitting Physician: Nannette Weaver M.D. Primary Care Physician: Primary Care Physician Alma FALCON NOTES DATE OF SERVICE 12/09/2016 DISCUSSION Mr. Nava is a 26-year-old male who substance abuse and mood disorder who was seen today and chart was reviewed and case was discussed with the staff. He has been anxious, withdrawn rather seclusive to himself. Meanwhile, he has been cooperative with treatment recommendations and has been taking medications and tolerating them fairly with no reported side effects. MENTAL STATUS EXAMINATION Young white male who was casually dressed with fair personal hygiene, appears to be in no acute distress or discomfort. He was awake and alert on interaction with intact orientation. His mood was anxious with congruent affect. His speech was slow and goal-directed. He denies any suicidal or homicidal ideations. Also, denies any auditory or visual hallucinations. His insight and judgement remains slightly impaired. TREATMENT PLAN 1. We will continue his on his current medications and treatment protocol. We will monitor his response and make further adjustments as needed. 2. We will continue to follow up. Dictated by... Igor Chacon/lawrence TD: 12/12/2016 04:30 JOB #: [id number] Unit #: [id number] #: [id number] Patient: MAYA NAVA PROGRESS NOTES Page 1 of 1 X Nannette Weaver MD PROGRESS NOTE
--- NOTE | ~2016-12-07 | PN ---
Unit #: [id number] #: [id number] Patient: MAYA NAVA [id number] [facility] [address] [place] [address] [id number] MR#: [id number] NAME: MAYA NAVA ROOM: P202 Age: 26 Sex: M Admission Date: 12/07/2016 : 1990 Attending Physician: Nannette Weaver M.D. Admitting Physician: Nannette Weaver M.D. Primary Care Physician: Primary Care Physician Alma MEDEIROS PROGRESS NOTES DATE OF SERVICE: 12/10/2016 SUBJECTIVE Mr. Nava is a 26-year-old white male, who was seen today and chart was reviewed and case was discussed with the staff. He has been anxious, withdrawn, and rather seclusive to himself. Meanwhile, he has been cooperative with treatment recommendation and has been taking the medications and tolerating them fairly well with no reported side effects. MENTAL STATUS EXAMINATION Young white male, who was causally dressed with a fair personal hygiene and appears to be in no acute distress or discomfort. He was awake and alert on interaction with intact orientation. His mood was anxious with a congruent affect. He denies any suicidal or homicidal ideations. His insight and judgment remain slightly impaired. TREATMENT PLAN 1. We will continue him on his current medications and treatment protocol. We will monitor his response to the medication and make further adjustments as needed. 2. We will continue to follow up. Dictated by... Igor Chacon/jermaine TD: 12/12/2016 04:21 JOB #: [id number] [facility] PROGRESS NOTES Page 1 of 1 X Nannette Weaver MD PROGRESS NOTE
--- NOTE | ~2016-12-07 | PA ---
Unit #: [id number] #: [id number] [facility]: [facility] [id number] [facility] [address] [place] [address] [id number] I MR#: [id number] NAME: MAYA NAVA ROOM: P202 Age: 26 Sex: M Admission Date: 12/07/2016 : 1990 Date of Assessment: 12/08/2016 Attending Physician: Nannette Weaver M.D. Admitting Physician: Nannette Weaver M.D. Primary Care Physician: Primary Care Physician No PSYCHIATRIC ASSESSMENT DATE OF SERVICE 12/08/2016. IDENTIFYING DATA Mr. Nava is a 26-year-old single white male with history of mood disorder and substance abuse and dependence, who is known to me from previous multiple encounters and was recently discharged from my care last month and brought himself back to the hospital on a voluntary basis. CHIEF COMPLAINT "I'm hearing voices telling me to kill myself." HISTORY OF PRESENT ILLNESS Mr. Nava is a 26-year-old white male, who was transferred to us from [facility] for auditory hallucinations which are command in nature as the patient reports that male voice is telling him to kill himself and kill others on the street and reports hearing male voice is telling him to kill himself by cutting his wrist and also reports using methamphetamine 0.5 g IV daily with the last use being on the morning of coming to the hospital. He was seen to be agitated, irritable, unkempt, disheveled with acute psychosis, paranoia, delusional behavior, and suicidal and homicidal ideations, and has history of suicide in the past, and as such recommendation for inpatient level of care for safety and stabilization was made and the patient was stepped up to the inpatient unit. SUBSTANCE ABUSE HISTORY The patient reports extensive history of substance abuse and dependence including cannabis, opioids, and methamphetamine, and currently methamphetamine has been his drug of choice and reports that he has been using 0.5 g of methamphetamine with the last use yesterday and has not used opioids in the last one month particularly since he was last detox from the hospital. PAST PSYCHIATRIC HISTORY The patient has had history of multiple inpatient psychiatric and [facility] dependency [facility] and currently he is not active in any treatment program, is not seeing a psychiatrist, and is not taking any psychotropic medications. PAST MEDICAL HISTORY The patient's medical history is insignificant. ALLERGIES Unit #: [id number] #: [id number] Patient: MAYA NAVA No known medication allergies. CURRENT MEDICATIONS None. PERSONAL AND SOCIAL HISTORY A 26-year-old white male, who reports that he is single, unemployed, and essentially homeless, and has poor social support system. MENTAL STATUS EXAMINATION Young white male, who was casually dressed with fair personal hygiene, appears to be in no acute distress or discomfort. He was awake and alert on interaction with intact orientation to time, place, and person. His mood was anxious and depressed with a congruent affect. His speech was slow and restricted in content. He reports having suicidal ideations, but denies any homicidal ideation and does report auditory hallucinations, which are command in nature. His insight and judgment remain significantly impaired. DIAGNOSTIC IMPRESSION Psychiatric: Major depressive disorder, recurrent, moderate, with psychosis; methamphetamine dependence, moderate; opioid dependence, moderate. Medical: None. Stressors: Moderate psychosocial stressors. TREATMENT PLAN 1. The patient has presented with history of substance abuse and mood disorder, and has been decompensating and will need inpatient hospitalization for safety and stabilization. We will start him back on his home medications. We will adjust the medications and monitor response. 2. Supportive therapy was provided to the patient. ESTIMATED LENGTH OF STAY 5 to 7 days. ABILITY TO HELP SELF Limited. WILLINGNESS TO HELP SELF The patient appears to be willing to help self. STRENGTHS 1. Communicative. 2. Cooperative. PROBLEMS 1. Chronic dysphoric symptoms. 2. Poor social support system. DISCHARGE CRITERIA This will be contingent upon the patient's ability to show resolution of his depression and anxiety and his ability to stay safe to himself, particularly after discharge from the hospital. Dictated by... Nannette Weaver M.D. Unit #: [id number] #: [id number] Patient: MAYA NAVA IAA/modl TD: 12/08/2016 21:34 JOB #: [id number] PSYCHIATRIC ASSESSMENT Page 1 of 1 X Nannette Weaver MD X PSYCHIATRIC ASSESSMENT
--- NOTE | ~2016-12-07 | DS ---
Unit #: [id number] #: [id number] Patient: MAYA NAVA [id number] [facility] [address] [place] [address] [id number] I MR#: [id number] NAME: MAYA NAVA ROOM: P202 Age: 26 Sex: M Admission Date: 12/07/2016 : 1990 Discharge Date: 12/12/2016 Attending Physician: Nannette Weaver M.D. Primary Care Physician: Primary Care Physician No DISCHARGE SUMMARY IDENTIFYING DATA Mr. Nava is a 26-year-old single white male with history of mood disorder and substance abuse, who is known to me from previous encounter and was recently discharged from my care and was self-referred back to the hospital on a voluntary basis. DISCHARGE DIAGNOSES Psychiatric: Major depressive disorder, recurrent, moderate, without psychotic features; opioid dependence, moderate, in acute withdrawals; and methamphetamine dependence, moderate. Medical: None. Stressors: Mild psychosocial stressors. HISTORY OF PRESENT ILLNESS Please see initial psychiatric evaluation for details. PAST PSYCHIATRIC HISTORY Please see initial psychiatric evaluation for details. PAST MEDICAL HISTORY Please see initial psychiatric evaluation for details. HOSPITAL COURSE The [facility] and was oriented to the hospital environment. Routine p.r.n. medications were initiated, and he was started back on his home medications and detox protocol was initiated as well. He was taking the medications regularly and was tolerating them fairly well and was able to come out of the detox without any complications and was wanting to go home and was denying any suicidal ideations, intent, or plan and was not seen to be a danger to self or anyone else, and as such, it was decided that he will be discharged home and will continue treatment on an outpatient basis. DISCHARGE MEDICATIONS None. DISCHARGE CONDITION Stable. PROGNOSIS Fair. Dictated by... Unit #: [id number] #: [id number] Patient: MAYA NAVA Igor Chacon/jermaine TD: 12/12/2016 16:00 JOB #: [id number] DISCHARGE SUMMARY Page 1 of 1 X Nannette Weaver MD DISCHARGE SUMMARY
--- NOTE | ~2016-12-07 | PN ---
Unit #: [id number] #: [id number] Patient: MAYA NAVA [id number] [facility] [address] [place] [address] [id number] MR#: [id number] NAME: MAYA NAVA ROOM: P202 Age: 26 Sex: M Admission Date: 12/07/2016 : 1990 Attending Physician: Nannette Weaver M.D. Admitting Physician: Nannette Weaver M.D. Primary Care Physician: Primary Care Physician Alma FALCON NOTES DATE OF SERVICE: 12/11/2016 SUBJECTIVE Mr. Nava is a 26-year-old white male, who was seen today and chart was reviewed, and case was discussed with the staff. He has been doing fairly well and has been showing improvement in his depression and anxiety as he has been cooperative with treatment recommendations and has been taking medications and tolerating them fairly well with no reported side effects. MENTAL STATUS EXAMINATION Young white male, who was casually dressed with a fair personal hygiene and appears to be in no acute distress or discomfort. He was awake and alert on interaction with intact orientation. His mood was anxious with a congruent affect. His speech is slow and goal directed. He denies any suicidal or homicidal ideations. His insight and judgment remain slightly impaired. TREATMENT PLAN 1. We will continue him on his current medications and treatment protocol. We will monitor his response to the medications and make further adjustments as needed. 2. We will continue to follow up. Dictated by... Igor Chacon/jermaine TD: 12/13/2016 03:25 JOB #: [id number] [facility] PROGRESS NOTES Page 1 of 1 X Nannette Weaver MD PROGRESS NOTE
[2016-12-08 09:43] LABS: BASOPHIL# 0.1 X10e3 (0-0.3); BASOPHIL% 0.9 % (0-2.5); EOSINOPHIL# 0.3 X10e3 (0-0.7); EOSINOPHIL% 5.1 % (0.0-7.0); HEMATOCRIT 42.7 % (38.0-50.0); HEMOGLOBIN 14.5 gm/dL (13.0-16.0); LYMPHOCYTE# 2.2 X10e3 (1.0-3.5); LYMPHOCYTE% 32.7 % (17.0-45.0); MEAN CELL VOLUME 91.8 FL (83-96); MEAN CORPUSCULAR HEMOGLOBIN 31.1 PG (28-34); MEAN CORPUSCULAR HGB CONC 33.9 g/dL (30-36); MEAN PLATELET VOLUME 8.6 FL (6.5-11.5); MONOCYTE# 0.7 X10e3 (0-1.0); MONOCYTE% 10.4 % (3.0-12.0); NEUTROPHIL# 3.4 X10e3 (1.5-7.1); NEUTROPHIL% 50.9 % (40-75); PLATELET COUNT 268 X10e3 (140-420); RED BLOOD COUNT 4.66 X10e (3.90-5.60); RED CELL DISTRIBUTION WIDTH 13.5 % (11.0-15.5); WHITE BLOOD COUNT 6.7 X10e3 (4.0-10.5)
[2016-12-08 09:51] LABS: DIFF IND NO
[2016-12-08 10:06] LABS: ALBUMIN SERUM 3.8 g/dL (3.5-5.0); BILIRUBIN,TOTAL 1.3 mg/dL (0.2-2.0); GLOM FILT RATE Estimated 102.7 mL/min (>60); POTASSIUM 4.1 mmol/L (3.5-5.1)
[2016-12-09 09:46] LABS: URINE APPEARANCE CLEAR; URINE BILIRUBIN NEG (NEG); URINE BLOOD NEG (NEG); URINE COLOR YELLOW; URINE GLUCOSE NEG (NEG); URINE KETONE NEG (NEG); URINE LEUKOCYTE ESTERASE NEG (NEG); URINE NITRATE NEG (NEG); URINE PH 6.5 (5-8); URINE PROTEIN NEG (NEG); URINE SPECIFIC GRAVITY 1.022 (1.003-1.035)
[2016-12-09 10:00] LABS: AMPHETAMINE POS (NEG); BARBITURATES NEG (NEG); BENZODIAZEPINES NEG (NEG); COCAINE NEG (NEG); MARIJUANA NEG (NEG); OPIATES NEG (NEG); TRICYCLIC ANTIDEPRESSANTS NEG (NEG); U METHADONE NEG (NEG)
== END 2016-12-12 10:25 | DRG 885 ==
LOC: P2S 19:59
PROVIDERS: Psychiatry & Neurology Psychiatry
PROC: HZ2ZZZZ Detoxification Services for Substance Abuse Treatment (ICD-10-PCS; principal; 2016-12-08)
DX: F33.1 Major depressive disorder, recurrent, moderate (principal); F15.20 Other stimulant dependence, uncomplicated; F11.23 Opioid dependence with withdrawal
CPT/HCPCS: 80053; 80307; 81003; 85025